=== PATIENT | male | born 1955 | race Caucasian/White ===

== ENCOUNTER 2018-01-29 06:04 | Day surgery (SDC) | payer OTHER ==
[2018-01-29] MEDS ORDERED: SOD CHLORIDE 0.9% 1,000 ML IV (06:24)
[2018-01-29] MEDS ORDERED: DICLOFENAC 0.1% 2.5 ML OPH OPER (06:25)
[2018-01-29] MEDS: MOXIFLOXACIN 0.5% 3 ML OPH OPER (06:48)
[2018-01-29] MEDS: DICLOFENAC 0.1% 2.5 ML OPH OPER (06:48)
[2018-01-29] MEDS: TROPICAMIDE 1% 3 ML OPH OPER (06:49)
[2018-01-29] MEDS: CYCLOPENTOLATE/PHENYLEPH 2 ML OPH OPER (06:49)
[2018-01-29] MEDS ORDERED: LIDOCAINE 2% (SDV) 5 ML INJ (07:00)
[2018-01-29] MEDS ORDERED: PROPOFOL 200 MG INJ (07:00)
[2018-01-29] MEDS: CARBACHOL 0.01% 1.5 ML OPH INJ (07:17)
[2018-01-29] MEDS ORDERED: LIDOCAINE 4% (MPF) 5 ML INJ (07:17)
[2018-01-29] MEDS: CEFAZOLIN 1 GM INJ (07:17)
[2018-01-29] MEDS: DEXAMETHASONE 4 MG/ML 1 ML INJ (07:18)
[2018-01-29] MEDS ORDERED: LIDOCAINE 1% (MPF) 10 ML INJ (07:18)
[2018-01-29] MEDS ORDERED: GENTAMICIN 80 MG INJ (07:18)
[2018-01-29] MEDS ORDERED: EPINEPHrine 1 MG INJ (07:18)
[2018-01-29] MEDS ORDERED: TETRACAINE 0.5% 4 ML OPH (07:18)
[2018-01-29] MEDS ORDERED: NA HYALURONATE/CHONDROITIN 0.5 ML SYG (07:18)
[2018-01-29] MEDS ORDERED: FENTAnyl 50 MCG/ML VIAL (07:51)
[2018-01-29] MEDS ORDERED: ONDANSETRON 4 MG INJ IV (08:00)
[2018-01-29] MEDS ORDERED: METOCLOPRAMIDE 10 MG INJ IV (08:00)
[2018-01-29] MEDS ORDERED: DIPHENHYDRAMINE 50 MG INJ IV (08:00)
[2018-01-29] MEDS ORDERED: ALBUTEROL 0.083% (NEB) 2.5 MG/3 ML AMP HHN (08:00)
[2018-01-29] MEDS ORDERED: MEPERIDINE 25 MG INJ IV (08:00)
[2018-01-29] MEDS ORDERED: HYDROmorphONE 1 MG/5 ML IV SYRINGE IV ×2 (08:00)
[2018-01-29] MEDS ORDERED: FENTAnyl 50 MCG/ML VIAL IV ×2 (08:00)
== END 2018-01-29 06:05 | disposition home or self-care (01) ==
LOC: SDS 06:04
DX: H25.11 Age-related nuclear cataract, right eye (principal); I10 Essential (primary) hypertension; E78.5 Hyperlipidemia, unspecified; E66.9 Obesity, unspecified; Z68.42 Body mass index [BMI] 45.0-49.9, adult
CPT/HCPCS: 66984; 82962